=== PATIENT | male | born 1935 | race Caucasian/White ===

== ENCOUNTER → 2017-02-11 | Outpatient (CLI) | payer OTHER, BC ==
[~2017-02-11] MED LIST: ARICEPT 5 MG TAB5 MG PO; ASPIR 8181 MG PO; ASPIRIN EC81 M1 PO; ASPIRIN325 PO; ATENOLOL 25 MG25 M1 PO; FISH OIL 1,0001 EAC5 PO; GLUCOPHAGE1000 MG PO; HYDROCHLOROTH12.5 MG PO; IRON325 PO; LIPITOR40 MG PO; LIPITOR80 MG PO; LISINOPRIL20 MG PO; OMEPRAZOLE 20 M20 M1 PO; PLAVIX 75 MG TA75 MG PO; PROTONIX40 M1 PO; TUMS PO
[2017-02-11 10:29] LABS: CREATININE 1.1 mg/dL (0.7-1.3)
== END ==
LOC: CAT 09:48
PROVIDERS: Family Medicine
DX: I63.9 Cerebral infarction, unspecified (principal)

== ENCOUNTER → 2017-10-19 | Outpatient (CLI) | payer OTHER, BC ==
[~2017-10-19] VITALS: Ht 175.3 cm; Wt 97.5 kg
[~2017-10-19] MED LIST changes: +HYDROCHLOROTHIA25 M2 PO; +VITAMIN D1000 UNI1 PO
--- NOTE | ~2017-10-19 | EKG ---
[address] [address] ELECTROCARDIOGRAM REPORT Name: JAMES HEARD [facility] #: [id number] Admission: 10/19/17 Attend Phys: Marquis Martin MD Discharge: Date of : 37 Report #: [id number] THIS REPORT FOR: //name// [facility] Test Date: 2017-10-19 Test Time: 07:20:46 Pat Name: JAMES HEARD Department: Room: Gender: M Special Distribution Clerk: : 1935 Requested By: Marquis Maritn Order Number: [id number] MD: Valdez Walsh Measurements Intervals [place] Rate: 80 P: 23 DC: 161 QRS: 3 QRSD: 150 T: 171 QT: 415 QTc: 479 Interpretive Statements Sinus rhythm Left bundle branch block Compared to ECG 08/31/2014 09:27:40 Left bundle-branch block now present Sinus bradycardia no longer present ST (T wave) deviation no longer present Electronically Signed On 10-19-2017 15:07:57 DISCHARGE DOOR OPERATOR by Valdez Walsh [email or web address] <ELECTRONICALLY SIGNED> By: Valdez Walsh MD 10/19/17 1507 9 9 Valdez Walsh MD /EPI
--- NOTE | ~2017-10-19 | CATHLAB ---
[facility] [address] [place] [address] INVASIVE PROCEDURE REPORT Name: ORQUIDEAJAMES Robison Room #: [facility] [id number] Admission: 10/19/17 Attend Phys: Marquis Martin MD Discharge: Date of : 37 Date of Service: 10/19/17 1516 Report #: [id number] THIS REPORT FOR: //name// APPROVED REPORT Patient Details Patient Status: Out-Patient Room #: The patient is a 82 year-old male Event Personnel Marquis Martin Cassandra Consultant, Shanice Padilla, John Lucas RN, Lisa Ravi Scrub Procedures Performed Art Access - R femoral artery* , Left Heart Cath Coronaries, Bypass Grafts [id number] LHCCORCABG Hemostasis with Manual pressure 13304 Initial Mod Sed Same Phys/QHP Gr5y 128574 Indication Dyspnea, Positive stress test Risk Factors Hypercholesterolemia, Coronary Artery DiseaseHypertension Previous Procedures/Diagnoses Previous CABGPrevious PCI Procedure Narrative The patient was brought electively to the Cardiac Catheterization Laboratory and was prepped and draped in a sterile manner. The Right Groin^ was infiltrated with 1% Lidocaine subcutaneous anesthesia. A PINNACLE 4FR Sheath #[id number] sheath was inserted into the RFA 4Fr.^. Coronary angiography was performed using coronary diagnostic catheters. The right coronary system was accessed and visualized with a JR4 catheter. The left coronary system was accessed and visualized with a 4FR JL6 #[id number] catheter. The left ventricle was accessed and visualized with a 4FR IM #[id number] catheter. Left ventricular/Aortic Valve gradient assessed via catheter pullback. Hemostasis was obtained with manual pressure following sheath removal without any complications. The patient tolerated the procedure well and there were no complications associated with the procedure. There was no hematoma. Intraoperative Conscious Sedation Sedation start time: 08:10 Case end Time: [facility] [address] [place] [address] INVASIVE PROCEDURE REPORT Name: JAMES HEARD Room #: [facility] [id number] Admission: 10/19/17 Attend Phys: Marquis Martin MD Discharge: Date of : 37 Date of Service: 10/19/17 1516 Report #: [id number] 08:29 Fentanyl 25.0 mcg Versed 1.5 mg Fluoro Time: 5.15 minutes Dose: DAP 7087.96 cGycm2 847 mGy Contrast Type and Amount: Visipaque 97 ml Coronary Angiography The patient's coronary anatomy is right dominant. Alutiiq Artery Percent Stenosis Left Main: % Prox LAD: 100 % Mid/Distal LAD: % Circumflex: 100 % RCA: 100 % Ramus: % Diagnostic Cath LAD There is a patent PHLILIPS graft with an end-to-side anastomosis to the mid LAD. After the anastomosis, there is both retrograde and antegrade flow in the LAD. Circumflex There is a patent sequential SVG to the first diagonal artery, OM1 and OM 2. In the proximal segment of the vein graft, there is mild diffuse disease, 30%. Right Coronary There is a patent SVG to the PDA. There is a stent in the proximal segment of the vein graft, patent with mild restenosis. There is moderate diffuse disease in the mid segment of the vein graft, 40-50%. Left Ventriculography Left Ventriculography was not performed. An LVEDP was measured and there is no gradient across the outflow tract. Hemodynamics The aortic pressure is 123/79 mmHg with a mean of 96 mmHg. The left ventricular pressure is 124/6 mmHg with a mean of mmHg. The left ventricular end diastolic pressure is 18 mmHg. Conclusion 1. Patent PHILLIPS to the LAD. 2. Patent sequential SVG to first diagonal artery, first OM artery and second OM artery. 3. Patent stent in the proximal segment of the SVG to the PDA. There is moderate disease within the mid segment of the vein graft. 4. Recommend medical therapy. <ELECTRONICALLY SIGNED> By: Marquis Martin MD 10/19/17 1516 1516 1516 Marquis Martin MD /INF
[2017-10-19 07:19] VITALS: BP 132/80
[2017-10-19 07:37] LABS: HEMOGLOBIN 16.1 gm/dL (14.0-18.0); MCH 30.4 pg (26.0-34.0); MCV 86.8 fL (80.0-100.0); RBC 5.31 mil/uL (4.50-6.00); RDW 14.6 % (10.5-14.5)
[2017-10-19 07:48] LABS: CALCIUM 8.8 mg/dL (8.5-10.1); CREATININE 1.4 mg/dL (0.7-1.3); POTASSIUM 3.8 mmol/L (3.5-5.1)
== END ==
LOC: CATH 06:52
PROVIDERS: Internal Medicine Cardiovascular Disease
DX: I25.10 Atherosclerotic heart disease of native coronary artery without angina pectoris (principal); I11.9 Hypertensive heart disease without heart failure; E78.00 Pure hypercholesterolemia, unspecified; K21.9 Gastro-esophageal reflux disease without esophagitis; D64.9 Anemia, unspecified; E11.9 Type 2 diabetes mellitus without complications; F17.220 Nicotine dependence, chewing tobacco, uncomplicated; Z95.1 Presence of aortocoronary bypass graft; Z90.49 Acquired absence of other specified parts of digestive tract; Z79.82 Long term (current) use of aspirin; Z95.5 Presence of coronary angioplasty implant and graft; Z79.899 Other long term (current) drug therapy

== ENCOUNTER → 2019-04-23 | Outpatient (CLI) | payer OTHER, BC | LOC: RAD 11:31 | DX: J98.4 Other disorders of lung (principal); Z95.818 Presence of other cardiac implants and grafts ==

== ENCOUNTER → 2019-05-10 | Outpatient (CLI) | payer OTHER, BC ==
--- NOTE | 2019-05-10 11:34 | 2DMMODE ---
[facility] [place] [address] 2 D/M-MODE ECHOCARDIOGRAM Name: ORQUIDEAJAMES Room #: REG [facility]#: [id number] ������������� Admission: 05/10/19 ������������� Attend Phys: Marquis Martin MD Discharge: ��� ������������� ��� Date of : 37 Date of Service: 05/10/19 1134 �� Report #: [id number] �������� ��������������������������������������������[id number] THIS REPORT FOR: //name// APPROVED REPORT Study performed: 05/10/2019 10:10:57 EXAM: Comprehensive 2D, Doppler, and color-flow Echocardiogram Patient Location: Echo lab, Out-Patient Status: routine BSA: 2.17 HR: 62 bpm BP: 124/78 mmHg Rhythm: NSR Other Information Study Quality: Adequate Risk Factors: Cardiac Risk Factors: HTN, Hyperlipidemia, DM Indications CAD 2D Dimensions IVSd: 12.94 (7-11mm) LVOT Diam: 22.00 (18-24mm) LVDd: 41.36 mm PWd: 13.12 (7-11mm) Ascending Ao: 36.70 (22-36mm) LVDs: 28.00 (25-40mm) Aortic Root: 31.74 mm LV Single Plane 4CH: 60.01 % LV Single Plane 2CH: 62.23 % Biplane EF: 61.4 % Volumes Left Atrial Volume (Systole) Single Plane 4CH: 46.72 mL Single Plane 2CH: 51.63 mL LA ESV Index: 25.00 mL/m2 Aortic Valve AoV Peak Zack.: 1.41 m/s AO Peak Gr.: 7.97 mmHg LVOT Max P.31 mmHg LVOT Max V: 1.04 m/s GAGE Vmax: 2.74 cm2 [facility] [address] [place] [address] 2 D/M-MODE ECHOCARDIOGRAM Name: MAIADanyelJAMES Room #: [facility] [id number] ������������� Admission: 05/10/19 ������������� Attend Phys: Marquis Martin MD Discharge: ��� ������������� ��� Date of : 37 Date of Service: 05/10/19 1134 �� Report #: [id number] �������� ��������������������������������������������[id number] AI Vmax: 3.48 m/s AI [place]: 1.45 m/s2 AI PHT: 697.72 ms Mitral Valve E/A Ratio: 0.6 MV Decel. Time: 383.40 ms MV E Max Zack.: 0.77 m/s MV A Zack.: 1.19 m/s MV PHT: 111.19 ms IVRT: 59.98 ms TDI E/Lateral E': 11.00 E/Medial E': 15.40 Medial E' Zack.: 0.05 m/s Lateral E' Zack.: 0.07 m/s Pulmonary Valve PV Peak Zack.: 1.04 m/s PV Peak Gr.: 4.30 mmHg Pulmonary Vein P Vein S: 0.53 m/s P Vein A: 0.22 m/s P Vein D: 0.24 m/s P Vein A Dur.: 138.4 msec P Vein S/D Ratio: 2.21 Tricuspid Valve RAP Estimate: 7.00 mmHg Left Ventricle The left ventricle is normal size. Basal-mid inferior hypokinesis. Mild concentric left ventricular hypertrophy. The left ventricular systolic function is normal. The left ventricular ejection fraction is within the normal range. LVEF is 60-65%. Mild diastolic dysfunction is present (impaired relaxation pattern). Right Ventricle The right ventricle is normal size. The right ventricular systolic function is normal. Atria The left atrium size is normal. The right atrium size is normal. Aortic Valve The aortic valve is normal in structure. Mild aortic regurgitation. There is no aortic valvular stenosis. [address] [place] [address] 2 D/M-MODE ECHOCARDIOGRAM Name: JAMES HEARD Room #: REG CL [facility]#: [id number] ������������� Admission: 05/10/19 ������������� Attend Phys: Marquis Martin MD Discharge: ��� ������������� ��� Date of : 37 Date of Service: 05/10/19 1134 �� Report #: [id number] �������� ��������������������������������������������[id number] Mitral Valve Mild mitral annular calcification. Mild mitral regurgitation. No evidence of mitral valve stenosis. Tricuspid Valve The tricuspid valve is normal in structure. There is no tricuspid valve regurgitation noted. Pulmonic Valve The pulmonary valve is normal in structure. Trace pulmonic regurgitation. Great Vessels The aortic root is normal in size. The ascending aorta is normal in size. IVC is normal in size and collapses >50% with inspiration. Pericardium There is no pericardial effusion. <Conclusion> The left ventricle is normal size. Mild concentric left ventricular hypertrophy. The left ventricular systolic function is normal. Mild diastolic dysfunction is present (impaired relaxation pattern). The right ventricle is normal size. The left atrium size is normal. Mild aortic regurgitation. Mild mitral regurgitation. There is no tricuspid valve regurgitation noted. ��������������������������������������������� <ELECTRONICALLY SIGNED> ���������������������������������������� By: Marquis Martin MD ��������������������������������������������� 05/10/19 1134 1134 1134 Marquis Martin MD /INF
== END ==
LOC: CV 10:17
DX: I08.0 Rheumatic disorders of both mitral and aortic valves (principal); I10 Essential (primary) hypertension; E78.5 Hyperlipidemia, unspecified; E11.9 Type 2 diabetes mellitus without complications; I25.10 Atherosclerotic heart disease of native coronary artery without angina pectoris

== ENCOUNTER 2019-12-04 16:34 | Emergency (ER) | payer OTHER, BC ==
[~2019-12-04] VITALS: Ht 182.9 cm; Wt 97.5 kg
--- NOTE | ~2019-12-04 | EKG ---
[facility] [place] [address] ELECTROCARDIOGRAM REPORT Name: JAMES HEARD Ricki Room #: PRE M.R.#: [id number] Admission: Attend Phys: Discharge: Date of : 37 Report #: [id number] THIS REPORT FOR: cc: Kamran Villalobos MD, Neal A. MD Epiphany, Epiphany MD ~ THIS REPORT FOR: //name// [facility] ED Test Date: 2019-12-04 Test Time: 16:38:18 Pat Name: JAMES HEARD Department: Room: Gender: M Information Strategist: YARELY : 1935 Requested By: Harvey Dc Order Number: [id number] MD: Measurements Intervals [place] Rate: 0 P: 0 WA: QRS: 0 QRSD: T: QT: QTc: 0 Interpretive Statements Uncertain rhythm: review No further analysis attempted - not enough leads could be measured Missing lead(s): I,aVR,aVL,V2,V3,V4,V5,V6 Compared to ECG 10/19/2017 07:20:46 Sinus rhythm no longer present Left bundle-branch block no longer present [email or web address] By: 1638 1638 Epiphany Epiph[place], [place] /EPI
== END 2019-12-04 16:38 ==
LOC: ER 16:34
DX: I46.9 Cardiac arrest, cause unspecified (principal); I10 Essential (primary) hypertension; E78.00 Pure hypercholesterolemia, unspecified; K21.9 Gastro-esophageal reflux disease without esophagitis; Z95.1 Presence of aortocoronary bypass graft

== ENCOUNTER → 2019-12-04 | Outpatient (CLI) | payer OTHER, BC | LOC: RAD 15:34 | DX: J98.11 Atelectasis (principal); J18.9 Pneumonia, unspecified organism ==